=== PATIENT | female | born 1975 | race Caucasian/White ===

== ENCOUNTER 2017-06-20 10:58 | Emergency (ER) | payer OTHER ==
[2017-06-20 11:09] VITALS: PULSE 102; RESP 20; O2SAT 100
--- NOTE | 2017-06-20 13:25 | ED PDOC ---
Lower Extremity Pain/Injury Time Seen by Provider: 06/20/17 11:33 Chief Complaint (Nursing): Lower Extremity Problem/Injury Chief Complaint (Provider): Lower Extremity Problem/Injury History Per: Patient History/Exam Limitations: no limitations Onset/Duration Of Symptoms: Days (x14) Current Symptoms Are (Timing): Still Present Additional Complaint(s): Tory Ferraro is a 42 year old female presenting to the ED for an evaluation of pain to her left foot associated with a bump occurring for 2 weeks. She states she did not take any medications for the pain. She denies trauma, fever, discharge, or any other medical complaints. PMD: Non [facility] Provider Past Medical History Reviewed: Historical Data, Nursing Documentation, Vital Signs Vital Signs: Last Vital Signs Temp Pulse 102 H 06/20/17 11:05 Resp 20 06/20/17 11:05 BP Pulse Ox 100 06/20/17 11:05 - Medical History PMH: No Chronic Diseases - Family History Family History: States: Unknown Family Hx - Social History Alcohol: None Drugs: Denies - Home Medications Home Medications: Ambulatory Orders Medication Instructions Recorded Cephalexin [Keflex] 500 mg PO TID #15 cap 11/04/14 Naproxen 500 mg PO Q12 #20 tab 11/06/14 DiphenhydrAMINE [Benadryl] 50 mg PO TID #12 cap 06/08/16 Famotidine [Pepcid] 40 mg PO DAILY #10 tab 06/08/16 Methylprednisolone [Medrol Dose 4 mg PO DAILY #21 mg 06/08/16 Pack (21 tabs)] Ibuprofen [Motrin] 600 mg PO Q6H PRN #20 tab 06/20/17 - Allergies Allergies/Adverse Reactions: Allergies Allergy/AdvReac Type Severity Reaction Status Date / Time No Known Allergies Allergy Verified 06/08/16 12:22 Review of Systems ROS Statement: Except As Marked, All Systems Reviewed And Found Negative Constitutional: Negative for: Fever, Other (no trauma) Musculoskeletal: Positive for: Foot Pain (left foot pain with bump; no discharge ) Physical Exam - Reviewed Nursing Documentation Reviewed: Yes Vital Signs Reviewed: Yes - Physical Exam Appears: Positive for: Non-toxic, No Acute Distress Head Exam: Positive for: ATRAUMATIC, NORMOCEPHALIC Eye Exam: Positive for: Normal appearance Neck: Positive for: Normal Extremity: Positive for: Other (2 callouses on left medial foot with no erythema , no induration, no fluctuance, no vesicles, no discharge) Neurologic/Psych: Positive for: Alert, Oriented (x2). Negative for: Motor/ Sensory Deficits - ECG O2 Sat by Pulse Oximetry: 100 (RA) Pulse Ox Interpretation: Normal Medical Decision Making Medical Decision Making: Time: 11:33 Impression: Left foot pain associated with 2 callouses Plan: * ED Urine (POC) * Motrin Tab 600 mg PO * Reevaluation Scribe Attestation: Documented by Madiha Grover, acting as a scribe for Allyson Elaine MD. Provider Scribe Attestation: All medical record entries made by the Scribe were at my direction and personally dictated by me. I have reviewed the chart and agree that the record accurately reflects my personal performance of the history, physical exam, medical decision making, and the department course for this patient. I have also personally directed, reviewed, and agree with the discharge instructions and disposition. Disposition - Clinical Impression Clinical Impression: Callus of foot - Disposition Referrals: Podiatry Clinic [Outside] Disposition: Routine/Home Disposition Time: 13:10 Condition: STABLE Prescriptions: Ibuprofen [Motrin] 600 mg PO Q6H PRN #20 tab PRN Reason: Pain, Moderate (4-7) Instructions: Blister (ED) Forms: [employer] Connect (Wolof), [employer] (Portuguese) Print Language: SAMOAN
== END 2017-06-20 14:25 | disposition home or self-care (01) ==
LOC: H.ER 10:58
DX: L84 Corns and callosities (principal)

== ENCOUNTER 2018-02-03 09:29 | Emergency (ER) | payer OTHER ==
[2018-02-03 11:05] LABS: BASO % 0.3 % (0.0-2.0); EOS # 0.1 K/uL (0.0-0.7); EOS % 0.9 % (0.0-4.0); HEMOGLOBIN 12.8 g/dL (12.0-16.0); LYMPH # 1.5 K/uL (1.0-4.3); LYMPH % 17.4 % (20.0-40.0); MEAN CELL VOLUME 92.4 fl (81.0-99.0); MEAN CORPUSCULAR HEMOGLOBIN 31.6 pg (27.0-31.0); MEAN CORPUSCULAR HGB CONC 34.2 g/dL (33.0-37.0); MEAN PLATELET VOLUME 8.7 fl (7.2-11.7); MONO # 0.6 K/uL (0.0-0.8); MONO % 7.3 % (0.0-10.0); NEUT # 6.6 K/uL (1.8-7.0); NEUT % 74.1 % (50.0-75.0); RBC 4.04 Mil/uL (3.80-5.20); RED CELL DISTRIBUTION WIDTH 13.7 % (11.5-14.5); WHITE BLOOD COUNT 8.9 K/uL (4.8-10.8)
[2018-02-03 11:12] LABS: SQUAMOUS EPITHIAL 4 /hpf (0-5); URINE BACTERIA MOD (<OCC); URINE BILIRUBIN NEGATIVE (NEGATIVE); URINE BLOOD SMALL (NEGATIVE); URINE CLARITY CLOUDY (Clear); URINE COLOR YELLOW (YELLOW); URINE GLUCOSE (UA) 50 mg/dL (Normal); URINE LEUKOCYTE ESTERASE SMALL Leu/uL (Negative); URINE PROTEIN NEGATIVE (NEGATIVE); URINE UROBILINOGEN 0.2-1.0 mg/dL (0.2-1.0)
[2018-02-03 11:18] LABS: ALBUMIN 3.7 g/dL (3.5-5.0); ALT/SGPT 31 U/L (9-52); AST/SGOT 25 U/L (14-36); BLOOD UREA NITROGEN 7 mg/dl (7-17); CALCIUM 9.4 mg/dL (8.4-10.2); GFR AFRICAN-AMERICAN > 60; GFR NON-AFRICAN AMERICAN > 60; LIPASE 56 U/L (23-300)
--- NOTE | 2018-02-03 11:28 | US ---
PROCEDURE: OB Pelvic Ultrasound HISTORY: pelvic pain right side () LMP: 12/01/2017 COMPARISON: Pelvic ultrasound dated 11/12/2014 FINDINGS: UTERUS: Placenta: Anterior, low lying. Presentation: Cephalic. pole: [place]-rump length measures 6.9 cm compatible with estimated gestation of 13 weeks, 1 day Heart rate: 158 bpm. age (Ultrasound estimated): 13 weeks, 1 Mandy-gestational hemorrhage: None. Date of delivery (Ultrasound estimated) : 08/10/2018 Uterus measures 16.5 x 12.0 x 8.6 cm. Normal in size and appearance. CERVIX: Long and closed. No cervical abnormality seen. RIGHT OVARY: Not visualized transabdominally or transvaginally LEFT OVARY: Not visualized transabdominally or transvaginally FREE FLUID: None. OTHER FINDINGS: None. IMPRESSION: Single intrauterine gestation with average ultrasound age 13 weeks, 1 day. heart rate 158 beats per minute. Cervix long close. No free fluid. Nonvisualization of the ovaries.
--- NOTE | 2018-02-03 11:58 | ED PDOC ---
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 Pt comlains of burning with urination, without bleeding or discharge or drainage. Symptom Onset: Gradual Symptom Course: Intermittent Quality: Aching, Pressure Past Medical History - Provider Review Nursing Documentation Reviewed: Yes - Travel History Have you recently traveled outside [place] w/in the past 3 mons?: Yes If Yes, travel location?: [place] - Past History Past History: No Previous - Genitourinary/Gynecological Other/Comment: G-3, P-2 - Psychiatric Hx Substance Use: No - Anesthesia Hx Anesthesia: No Family/Social History - Physician Review Nursing Documentation Reviewed: Yes Family/Social History: Unknown Family HX Smoking Status: Unknown If Ever Smoked Hx Alcohol Use: No Hx Substance Use: No Allergies/Home Meds Allergies/Adverse Reactions: Allergies No Known Allergies Allergy (Verified 06/08/16 12:22) Review of Systems - Patients Enrolled in Transport Specialist Initiative [X]: A conversation was conducted with the primary medical doctor. - Physician Review All systems were reviewed & negative as marked: Yes - Review of Systems Systems not reviewed;Unavailable: Language Barrier Gastrointestinal: Abdominal Pain. absent: Diarrhea, Nausea, Vomiting Genitourinary Female: Dysuria, Frequency. absent: Hematuria, Vaginal Bleeding, Vaginal Discharge Physical Exam Vital Signs Reviewed: Yes Vital Signs Temp Pulse Resp BP Pulse Ox 02/03/18 09:47 98.1 F 140 H 21 133/73 100 Temperature: Afebrile Blood Pressure: Normal Pulse: Regular Respiratory Rate: Normal Appearance: Positive for: Well-Appearing, Non-Toxic, Comfortable Pain Distress: None Mental Status: Positive for: Alert and Oriented X 3 - Systems Exam Head: Present: Atraumatic, Normocephalic Pupils: Present: PERRL Extroacular Muscles: Present: EOMI Conjunctiva: Present: Normal Mouth: Present: Moist Mucous Membranes Respiratory/Chest: Present: Clear to Auscultation. No: Accessory Muscle Use Cardiovascular: Present: Regular Rate and Rhythm Abdomen: Present: Normal Bowel Sounds. No: Tenderness, Peritoneal Signs, Rebound, Guarding Medical Decision Making ED Course and Treatment: 02/03/18 11:39 HCG (+) U/S consistent with 13week (beginning second trimester) see below for report U/A (+) for bacteria, will treat with abx: nitrofurantoin 100mg qid as well as pre-kayy vitamins. Referral to IT SUPPORT TECHNICIAN Patient informed via trekking guide at discharge that it is very important that she establish care ith an OB as soon as possible as she is entering her second trimester of . A referral to the women's health clinic and family practice clinic was provided. PROCEDURE: OB Pelvic Ultrasound HISTORY: pelvic pain right side () LMP: 12/01/2017 COMPARISON: Pelvic ultrasound dated 11/12/2014 FINDINGS: UTERUS: Placenta: Anterior, low lying. Presentation: Cephalic. pole: [place]-rump length measures 6.9 cm compatible with estimated gestation of 13 weeks, 1 day Heart rate: 158 bpm. age (Ultrasound estimated): 13 weeks, 1 Mandy-gestational hemorrhage: None. Date of delivery (Ultrasound estimated) : 08/10/2018 Uterus measures 16.5 x 12.0 x 8.6 cm. Normal in size and appearance. CERVIX: Long and closed. No cervical abnormality seen. RIGHT OVARY: Not visualized transabdominally or transvaginally LEFT OVARY: Not visualized transabdominally or transvaginally FREE FLUID: None. OTHER FINDINGS: None. IMPRESSION: Single intrauterine gestation with average ultrasound age 13 weeks, 1 day. heart rate 158 beats per minute. Cervix long close. No free fluid. Nonvisualization of the ovaries. 02/03/18 12:02 - Lab Interpretations Lab Results: 02/03/18 10:59 02/03/18 10:59 Lab Results 02/03/18 10:59: WBC 8.9, RBC 4.04, Hgb 12.8, Hct 37.4, MCV 92.4, MCH 31.6 H, MCHC 34.2, RDW 13.7, Plt Count 247, MPV 8.7, Neut % (Auto) 74.1, Lymph % (Auto) 17.4 L, [place] % (Auto) 7.3, Eos % (Auto) 0.9, Baso % (Auto) 0.3, Neut # (Auto) 6.6, Lymph # (Auto) 1.5, [place] # (Auto) 0.6, Eos # (Auto) 0.1, Baso # (Auto) 0.0 02/03/18 10:59: Urine Color Yellow, Urine Clarity Cloudy, Urine pH 6.0, Ur Specific [place] 1.013, Urine Protein Negative, Urine Glucose (UA) 50, Urine Ketones Negative, Urine Blood Small, Urine Nitrate Negative, Urine Bilirubin Negative, Urine Urobilinogen 0.2-1.0, Ur Leukocyte Esterase Small, Urine RBC ( Auto) 3, Urine Microscopic WBC 3, Ur Squamous Epith Cells 4, Urine Bacteria Mod H 02/03/18 10:59: Sodium 139, Potassium 3.6, Chloride 105, Carbon Dioxide 19 L, Anion Gap 19, BUN 7, Creatinine 0.5 L, Est GFR ( Amer) > 60, Est GFR (Non -Af Amer) > 60, Random Glucose 112 H, Calcium 9.4, Total Bilirubin 0.2, AST 25, ALT 31, Alkaline Phosphatase 50, Total Protein 7.6, Albumin 3.7, Globulin 3.8, Albumin/Globulin Ratio 1.0, Lipase 56 - RAD Interpretation Radiology Orders: 02/03/18 10:20 OB TRANSVAGINAL [US] Stat Disposition/Present on Arrival - Present on Arrival Any Indicators Present on Arrival: No History of DVT/PE: No History of Uncontrolled Diabetes: No Urinary Catheter: No History of Decub. Ulcer: No - Disposition Have Diagnosis and Disposition been Completed?: Yes Diagnosis: confirmed by positive blood test, Urinary tract infection Diagnosis: (Ruled Out): in second trimester with previous complicated by [id number] fetus Disposition: HOME/ ROUTINE Disposition Time: 12:10 Patient Plan: Discharge Patient Problems: Current Active Problems Problem Status Onset Urinary tract infection Acute Condition: GOOD Discharge Instructions (ExitCare): Tests, Urinary Tract Infection, Adult (DC), Symptoms, - The Fourth Month, - The Fifth Month Prescriptions: Nitrofurantoin [place] [Nitrofurantoin] 100 mg PO QID #28 capsule 123/Iron/Folic/Omeg3s [One-A-Day 1 Dha Sfgl] 1 each PO DAILY # 90 capsule Referrals: [facility] [Outside] [facility] [Outside] Forms: [facility] (Montenegrin)
[2018-02-03 13:52] VITALS: BP 128/78; PULSE 78; RESP 19; TEMP 97; O2SAT 98
== END 2018-02-03 13:52 | disposition home or self-care (01) ==
LOC: H.ER 09:29
DX: O23.40 Unspecified infection of urinary tract in pregnancy, unspecified trimester (principal)

== ENCOUNTER 2018-07-24 02:45 | Inpatient (IN) | payer MEDICAID, SELFPAY ==
[2018-07-24 03:26] VITALS: BMI 29.8
[2018-07-24] MEDS: Lactated Ringer's 1,000 ML IV SCH ×2 (03:54→04:37)
[2018-07-24] MEDS ORDERED: Phenaphthazine-PH Test Paper VI ONE (04:21)
[2018-07-24 05:11] VITALS: RESP 20; O2SAT 100
[2018-07-24 05:14] LABS: BASO # 0.2 K/uL (0.0-0.2); BASO % 1.4 % (0.0-2.0); EOS # 0.2 K/uL (0.0-0.7); HEMOGLOBIN 13.4 g/dL (12.0-16.0); LYMPH # 2.9 K/uL (1.0-4.3); LYMPH % 19.1 % (20.0-40.0); MEAN CELL VOLUME 93.7 fl (81.0-99.0); MEAN CORPUSCULAR HEMOGLOBIN 31.1 pg (27.0-31.0); MEAN CORPUSCULAR HGB CONC 33.2 g/dL (33.0-37.0); MEAN PLATELET VOLUME 10.3 fl (7.2-11.7); MONO % 6.8 % (0.0-10.0); NEUT # 11.1 K/uL (1.8-7.0); NEUT % 71.7 % (50.0-75.0); RBC 4.3 Mil/uL (3.80-5.20); RED CELL DISTRIBUTION WIDTH 14.5 % (11.5-14.5); WHITE BLOOD COUNT 15.4 K/uL (4.8-10.8)
[2018-07-24] MEDS ORDERED: Oxytocin 30 UNIT 30 UNITS/500 ML BAG IV ONE (05:14)
[2018-07-24] MEDS ORDERED: OXYTOCIN/0.9 % NS 20 UNIT/1,000 ML BAG IV SCH (05:15)
[2018-07-24] MEDS ORDERED: Benzocaine/Menthol SPRAY TOP PRN ×2 (07:25→13:58)
--- NOTE | 2018-07-24 07:32 | OBDS ---
DELIVERY PERSONNEL Delivery Doctor: Dex Banegas MD Hand Compositor: Leatha Farah RN/Esa Jimenez Resident: Nakita MATERNAL INFORMATION Delivery Anesthesia: Local Medications in Delivery: Pitocin Estimated Blood Loss (ml): 75 Placenta Cultured: No Maternal Complications: None Provider Comments: Pt progressed to complete and pushed to deliver a viable female infant through cl ear fluid at 0704 in the bed. Apgars 9 and 9. Wt 6#6, 2895 gms. placed on mother's abdomen. Cord doubly clamped and FOB cut the cord. Cord blood was collected. Placenta delivered spontaneou sly intact w/a 3vc at 0712. 1st degree tear repaired w/ 2-0 rapide and 3-0 rapide. Pt and baby tole rated the procedure well. Rectum intact. EBL 75 mL LABOR SUMMARY EDC: 08/10/2018 00:00 No. Babies in Womb: 1 LABOR INFORMATION Group B Beta Strep: Negative MEMBRANES Membranes Rupture Method: Spontaneous Rupture of Membranes: 07/24/2018 04:19 Amniotic Fluid Color: Clear Amniotic Fluid Amount: Small Amniotic Fluid Odor: Normal
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
[2018-07-25 06:46] LABS: BASO % 0.3 % (0.0-2.0); EOS # 0.3 K/uL (0.0-0.7); EOS % 2.8 % (0.0-4.0); HEMOGLOBIN 11.4 g/dL (12.0-16.0); LYMPH # 2.8 K/uL (1.0-4.3); LYMPH % 24.1 % (20.0-40.0); MEAN CORPUSCULAR HEMOGLOBIN 31.4 pg (27.0-31.0); MEAN CORPUSCULAR HGB CONC 33.8 g/dL (33.0-37.0); MEAN PLATELET VOLUME 9.1 fl (7.2-11.7); MONO # 0.8 K/uL (0.0-0.8); MONO % 7.1 % (0.0-10.0); NEUT # 7.7 K/uL (1.8-7.0); NEUT % 65.7 % (50.0-75.0); NRBC % 0.1 % (0.0-0.0); RBC 3.65 Mil/uL (3.80-5.20); RED CELL DISTRIBUTION WIDTH 14.5 % (11.5-14.5); WHITE BLOOD COUNT 11.8 K/uL (4.8-10.8)
--- NOTE | 2018-07-25 09:43 | OBHP ---
Datetime: 07/25/2018 09:41 IP Adm Impression: Term, intrauterine IP Admit Plan: Admit to unit; Initiate labor protocol Extremities - PN: Normal Abdomen - PN: Normal Back - PN: Normal Lungs - PN: Normal Heart - PN: Normal Thyroid - PN: Normal Neurologic - PN: Normal General - PN: Normal Membranes, Provider: Ruptured EGA AdmitDate IP: 37.5 IP Indication for Induction: Not Applicable IP Chief Complaint: Uterine contractions Dilatation, Provider: 2-3 Effacement, Provider: 50 Station, Provider: -3 Genitourinary Exam: Normal Datetime: 07/24/2018 04:00 Admit Comment, IP Provider: 43 yo at 37+4 wks w/ EDC 08/10/2018 by LMP c/w u/s c/o ctxns barrie t started at 11 pm, reports a little blood, denies LOF. Pt receives PNC at [facility]. PMH: H/o PTSD PSH: None Meds: PNVs All: NKDA Fam hx: N/c Soc hx: pt denies tobacco, alcohol and illicit drugs [place] hx: menarche at 17, reg periods, denies STDs, abn paps Ob hx: 03/1998 FT VD, female, 7lbs, baby at 7 months- unknown etiology 08/1999 FT VD, female, 8 lbs 03/2004 FT VD, male, 6#8 12/2014 SAB, uncomplicated PE: AFVSS Gen'l: pt appears uncomfortable Heart: RRR Chest: lungs CTA b/l Abd: soft, NT, gravid Ext: NT EFM: as above [place]: as above A/P: 43 yo at 37+4 wks w/ painful ctxns Will give IVF SROM at 0419. Pt admitted to L_D. H_P dictated. "[id number]" FHR - Baseline A Provider: 130's Contraction Comments Provider: irregular Vital Signs Provider: Reviewed NICHD Variability Prov Fetus A: Moderate 6-25bpm NICHD Accel Fetus A IP Provider: [id number]
--- NOTE | 2018-07-25 09:49 | OBADHP ---
Datetime: 07/25/2018 09:41 Admit Comment, IP Provider: 43 yo at 37+4 wks in labor w/ SROM admitted to L_D GBS negative FHT w/ variable decelerations, pt w/ oxygen placed, changing positions Suspect that she is making rapid change H_P dictated, "[id number]" (ES) Extremities - PN: Normal Abdomen - PN: Normal Back - PN: Normal Lungs - PN: Normal Heart - PN: Normal Thyroid - PN: Normal Neurologic - PN: Normal General - PN: Normal FHR - Baseline A Provider: 140's Membranes, Provider: Ruptured IP Chief Complaint: Uterine contractions NICHD Variability Prov Fetus A: Moderate 6-25bpm NICHD Decel Fetus A IP Provider: Variable Dilatation, Provider: 2-3 Effacement, Provider: 50 Station, Provider: -3 Genitourinary Exam: Normal EGA AdmitDate IP: 37.5 IP Adm Impression: Term, intrauterine IP Admit Plan: Admit to unit; Initiate labor protocol Datetime: 07/24/2018 04:00 Contraction Comments Provider: irregular Vital Signs Provider: Reviewed NICHD Accel Fetus A IP Provider: [id number]
--- NOTE | 2018-07-25 09:56 | OBPPN ---
Datetime: 07/25/2018 06:21 PP Pain Prov: Within normal limits PP Nausea Prov: Denies PP Flatus Prov: Yes PP BM Prov: No PP Breasts Prov: Not Done PP Heart Prov: Normal PP Lungs Prov: Normal PP Abdomen/Uterus Prov: Normal PP Lochia Prov: Normal PP Vulva/Perineum Prov: Normal PP CVA Tenderness Prov: Normal PP Extremities Prov: Normal PP C/S Incision Prov: Not Applicable PP Progress Prov: Normal PP Impression Prov: Normal progression PP Plan Prov: Continue present management PP Progress Note Prov: S: Patient seen this morning at bedside, she is now s/p on 07/24, today is PPD 1. Pt reports no complaints today. Reports minimal abdominal pain but is tolerable with pain medication. She is tolerating PO intake w/o N/V, ambulating to bathroom without any difficu lties, lochia is less than menses in volume, Breast feeding w/o difficulty and bottle feeding. Patien t reports flatus but no BM as of yet. O: VS WNL PE: Patient is resting comfortably in her hospital bed. In no acute distress. HEENT: EOMI, Mucous membrane moist. RESP: Clear air entry bilaterally. CV: RRR, no murmurs, gallops or rubs. ABD: soft, non-tender, uterus firm below umbilicus LE: No edema, Madi's negative. A/P: 43 y/o now s/p on 07/24/18, today is PPD1- normal post- progression. -Encourage ambulation -Encourage to continue -PNV 1 tab PO daily -Ibuprofen 600mg 1 tab Q6h prn for mild-mod pain -Anticipate discharge tomorrow, 07/26/18 Brunilda Hubbard MD PGY1 Patient seen and examined by me this morning. Agree with above resident note. and a mbulation encouraged. Patient denies depressive symptoms. --Dr. Warren IP PP Procedures: None Vital Signs Provider PP: Reviewed; Within Normal Limits
[2018-07-25] MEDS ORDERED: Influenza Vaccine (5 YR UP)/PF 60 MCG/0.5 ML SYR IM ONE (10:00)
--- NOTE | 2018-07-26 09:50 | OBPPN ---
Datetime: 07/26/2018 06:14 PP Pain Prov: Within normal limits PP Nausea Prov: Denies PP Flatus Prov: Yes PP BM Prov: No PP Breasts Prov: Not Done PP Heart Prov: Normal PP Lungs Prov: Normal PP Abdomen/Uterus Prov: Normal PP Lochia Prov: Normal PP Vulva/Perineum Prov: Normal PP CVA Tenderness Prov: Not Done PP Extremities Prov: Normal PP C/S Incision Prov: Not Applicable PP Progress Prov: Normal PP Impression Prov: Normal progression PP Plan Prov: Continue present management PP Progress Note Prov: S: Patient seen this morning at bedside, she is now s/p on 07/24, today is PPD 2. Pt reports no complaints today. Reports minimal abdominal pain but states is bet ter with pain medication. She is tolerating PO intake w/o N/V, ambulating to bathroom without any dif ficulties, lochia is less than menses in volume, Breast feeding w/o difficulty and supplementing with formula. Patient reports flatus but no BM as of yet. O: VS WNL PE: Patient is resting comfortably in her hospital bed. In no acute distress. HEENT: EOMI, Mucous membrane moist. RESP: Clear air entry bilaterally. CV: RRR, no murmurs, gallops or rubs. ABD: soft, non-tender, uterus firm below umbilicus LE: No edema, Madi's negative. A/P: 43 y/o now s/p on 07/24/18, today is PPD2- normal post- progression. Patie nt is stable to be D/C home today. - Encourage ambulation - Encourage to continue - PNV 1 tab PO daily - Ibuprofen 600mg 1 tab Q6h prn for mild-mod pain - Stable for D/C today, 07/26/18 Brunilda Hubbard MD PGY1 Patient was seen with resident I agree with the note IP PP Procedures: None Vital Signs Provider PP: Reviewed; Within Normal Limits
--- NOTE | 2018-07-26 10:45 | OBDCSUM ---
Datetime: 07/26/2018 06:14 Discharged to, Provider: Home Follow up at, Provider: [facility] Disch Instr Activity: Normal activity; May Shower Disch Instr Diet: Regular Discharge Instructions, Provider: Routine instructions given Discharge Diagnosis, Provider: Term Delivered Discharge Time: 07/26/2018 10:00 Follow up in weeks, Provider: 6 weeks Disch Referrals: None Contraception discussed, Prov: Yes Disch Activity Restrictions: No exercising; No lifting; No sexual activity; Nothing in vagina - Inte rcourse, tampons, douche Discharge Comment, Provider: EGA: 37.4 wk Diagnosis: 43 y/o , s/p on 07/24/18 @ 07:04. She delivered a baby girl, Wt [id number], APGA R 9/9 Summary: Patient is PPD2 with normal progression. No complications during post- period. Loch ia less than menses. Pt was able to pass gas but has not had BM, She is tolerating regular diet, Fund us firm below umbilicus, able to ambulate w/o any difficulties, voiding well, denies fever, chills, H A, SOB, N/V, calf pain. CBC post-: 11.4/33.9 Discharge Instructions: 1. Continue and increase 2. PNV 1 tab PO daily 3. Ibuprofen 600mg 1 tab PO Q6h prn for mild-mod pain 4. Pt reports she wants to have a full discussion with her physician at her follow up but does not want to make a decision at this point regarding control. 5. Instructions given to patient: If excessive bleeding, return of pain or increasing pain and/or fever without relief from medication, go to ED 6. PT was urged if feeling sad, mood swing, depression, neglect of baby, suicidal thoughts, homici irasema thought should go to ED or call 911 for help 7. Pt should go to her Primary care doctor if she has difficulty with 8. Soo will contact patient with appointment for post check at [facility]. Brunilda Hubbard MD PGY1 Agree with above discharge note --Dr. Warren Discharge Diagnosis Prov Other: Not sure at this moment type of contraception
--- NOTE | 2018-07-26 10:45 | OBPPN ---
Datetime: 07/26/2018 06:14 PP Progress Note Prov: S: Patient seen this morning at bedside, she is now s/p on 07/24, today is PPD 2. Pt reports no complaints today. Reports minimal abdominal pain but states is bet ter with pain medication. She is tolerating PO intake w/o N/V, ambulating to bathroom without any dif ficulties, lochia is less than menses in volume, Breast feeding w/o difficulty and supplementing with formula. Patient reports flatus but no BM as of yet. O: VS WNL PE: Patient is resting comfortably in her hospital bed. In no acute distress. HEENT: EOMI, Mucous membrane moist. RESP: Clear air entry bilaterally. CV: RRR, no murmurs, gallops or rubs. ABD: soft, non-tender, uterus firm below umbilicus LE: No edema, Madi's negative. A/P: 43 y/o now s/p on 07/24/18, today is PPD2- normal post- progression. Patie nt is stable to be D/C home today. - Encourage ambulation - Encourage to continue - PNV 1 tab PO daily - Ibuprofen 600mg 1 tab Q6h prn for mild-mod pain - Stable for D/C today, 07/26/18 Brunilda Hubbard MD PGY1 Patient was seen and evaluated by me today and agree with above resident note. Patient for dischar ge home today. RTC in 6 weeks for visit and continue pelvic rest. encouarged . --Dr. Warren
[2018-07-26 16:05] VITALS: BP 109/64; PULSE 78; TEMP 97.8
== END 2018-07-26 11:43 | disposition home or self-care (01) | DRG 807 ==
LOC: H.EROB2 02:45 → H.L&D 04:56 → H.OB/GYN 09:46
PROVIDERS: ADMIT Obstetrics & Gynecology; ATTEND Obstetrics & Gynecology
PROC: 10E0XZZ Delivery of Products of Conception, External Approach (ICD-10-PCS; principal; 2018-07-24)
PROC: 0HQ9XZZ Repair Perineum Skin, External Approach (ICD-10-PCS; 2018-07-24)
PROC: 4A1HXCZ Monitoring of Products of Conception, Cardiac Rate, External Approach (ICD-10-PCS; 2018-07-24)
PROC: 3E02340 Introduction of Influenza Vaccine into Muscle, Percutaneous Approach (ICD-10-PCS; 2018-07-25)
DX: O76 Abnormality in fetal heart rate and rhythm complicating labor and delivery (principal); O70.0 First degree perineal laceration during delivery; Z37.0 Single live birth; Z3A.37 37 weeks gestation of pregnancy; O09.523 Supervision of elderly multigravida, third trimester; Z23 Encounter for immunization; Z86.59 Personal history of other mental and behavioral disorders